=== PATIENT | female | born 1995 | race African-American/Black ===

== ENCOUNTER 2019-09-27 09:47 | Emergency (ER) | payer OTHER ==
[~2019-09-27] VITALS: Ht 162.6 cm; Wt 58.6 kg
[2019-09-27] MEDS ORDERED: BUPRENORPHINE HCL/NALOXONE HCL 8-2 MG SUBLINGUAL TABLET SL ONE ×2 (10:15→11:30)
[2019-09-27] MEDS ORDERED: KETOROLAC TROMETHAMINE 30 MG/ML VIAL IVP ONE (10:15)
[2019-09-27] MEDS ORDERED: SODIUM CHLORIDE 0.9% 1,000 ML IV ONE (10:15)
[2019-09-27 10:22] LABS: BASOPHILS % (AUTO) 1.4 % (0.0-2.0); HEMATOCRIT 39.5 % (36-46); HEMOGLOBIN 13.4 g/dL (12.0-16.0); LYMPHOCYTES # (AUTO) 1.5 K/uL (1.0-4.8); LYMPHOCYTES % (AUTO) 39.1 % (22.0-44.0); MEAN CORPUSCULAR HEMOGLOBIN 28.7 pg (26.0-34.0); MEAN CORPUSCULAR HGB CONC 33.9 G/dL (31.0-37.0); MEAN CORPUSCULAR VOLUME 85 fL (80-100); MONOCYTES # (AUTO) 0.3 K/uL (0.1-1.0); MONOCYTES % (AUTO) 8.5 % (2.0-9.0); NEUTROPHILS # (AUTO) 1.7 K/uL (1.8-7.7); PLATELET COUNT (AUTO) 254 K/uL (150-450); RED BLOOD CELL COUNT(AUTO) 4.67 MIL/uL (4.00-5.20); RED CELL DISTRIBUTION WIDTH 13.4 % (11.5-14.5)
[2019-09-27 10:29] LABS: ANION GAP 9 mmol/L (8-16); CALCIUM, TOTAL 8.5 mg/dL (8.8-10.5); CARBON DIOXIDE 26 mmol/L (22-29); CHLORIDE 104 mmol/L (98-107); CREATININE 0.71 mg/dL (0.60-1.30); GLOMERULAR FILTR. RATE CALC > 60 mL/min (>60); GLUCOSE,RANDOM 114 mg/dL (70-110); POTASSIUM 3.5 mmol/L (3.5-5.1); SODIUM SERUM 139 mmol/L (136-145); UREA NITROGEN, BLOOD 4 mg/dL (7-18)
[2019-09-27 10:49] LABS: ALANINE AMINOTRANSFERASE 10 U/L (12-78); ALBUMIN 3.8 g/dL (3.4-5.0); ALKALINE PHOSPHATASE 63 U/L (46-116); ASPARTATE AMINOTRANSFERASE 18 U/L (15-37); BILIRUBIN,TOTAL 0.4 mg/dL (0.1-1.0); HCG,QUANTITATIVE < 1 mIU/mL (0-6); LIPASE 74 U/L (73-393); TOTAL PROTEIN, SERUM 7.1 g/dL (6.4-8.2)
[2019-09-27 12:00] VITALS: BP 125/66
== END 2019-09-27 12:12 | disposition home or self-care (01) ==
LOC: EMS 09:49
DX: F11.23 Opioid dependence with withdrawal (principal); R11.2 Nausea with vomiting, unspecified; R10.30 Lower abdominal pain, unspecified; F41.9 Anxiety disorder, unspecified; F12.90 Cannabis use, unspecified, uncomplicated; Z88.6 Allergy status to analgesic agent
CPT/HCPCS: 36415; 80053; 81002; 83690; 84702; 85025; 96361; 96374; 99283; J1885